=== PATIENT | female | born 1960 | race Caucasian/White ===

== ENCOUNTER → 2017-04-15 | Outpatient (CLI) | payer OTHER | END | disposition home or self-care (01) | LOC: CFH 08:06 → EDSTATUS 08:15 | PROVIDERS: ATTEND Genetic Counselor, MS | DX: Z12.31 Encounter for screening mammogram for malignant neoplasm of breast (principal) | CPT/HCPCS: 77063; G0202 ==

== ENCOUNTER → 2017-08-22 | Outpatient (CLI) | payer OTHER ==
[2017-08-22 08:02] LABS: ALBUMIN 3.7 g/dL (3.4-5.0); ANION GAP 8 mmol/L (5-15); CALCIUM 8.9 mg/dL (8.5-10.1); CHLORIDE 105 mmol/L (98-107)
[2017-08-22 08:10] LABS: ALANINE AMINOTRANSFERASE 27 U/L (12-78); ALKALINE PHOSPHATASE 132 U/L (45-117); CHOL/HDL RATIO 4.3; CHOLESTEROL, TOTAL 189 mg/dL (140-239); CREATININE 0.73 mg/dL (0.55-1.02); FREE T4 (FREE THYROXINE) 1.11 ng/dL (0.76-1.46); HDL CHOL % 23 % (28-40); HDL CHOLESTEROL (DIRECT) 44 mg/dL (40-60); LDL CHOLESTEROL,CALCULATED 120 mg/dL (54-169); LDL/HDL RATIO 2.7 (0.5-3.0); TOTAL PROTEIN 7.8 g/dL (6.4-8.2); TRIGLYCERIDES 124 mg/dL (50-200); VLDL CHOLESTEROL 25 mg/dL (0-25)
[2017-08-22 08:36] LABS: HEMOGLOBIN A1C 6.8 % (4.2-6.3)
[2017-08-22 09:00] LABS: BASOPHILS # (AUTO) 0.07 x10^3/uL (0-0.1); BASOPHILS % (AUTO) 1 % (0-1); EOSINOPHILS # (AUTO) 0.57 x10^3/uL (0-0.4); EOSINOPHILS % (AUTO) 5 % (1-7); LYMPHOCYTES # (AUTO) 2.83 x10^3/uL (1-3.4); LYMPHOCYTES % (AUTO) 25 % (22-44); MD NO; MEAN CORPUSCULAR HEMOGLOBIN 30.1 pg (27.0-34.8); MEAN CORPUSCULAR HGB CONC 33.7 g/dL (32.4-35.8); MEAN CORPUSCULAR VOLUME 89.3 fL (80-100); MEAN PLATELET VOLUME 8.3 fL (7.4-10.4); MONOCYTES # (AUTO) 0.69 x10^3/uL (0.2-0.8); MONOCYTES % (AUTO) 6 % (2-9); NEUTROPHILS # (AUTO) 7.36 x10^3/uL (1.8-6.8); NEUTROPHILS % (AUTO) 64 % (42-75); PLATELET COUNT 363 x10^3/uL (130-400); RED BLOOD COUNT 5.11 x10^6/uL (3.82-5.3); RED CELL DISTRIBUTION WIDTH 14.2 % (9.6-15.2)
== END ==
LOC: LAB 07:35
PROVIDERS: ATTEND Genetic Counselor, MS
DX: E11.9 Type 2 diabetes mellitus without complications (principal)
CPT/HCPCS: 36415; 80053; 80061; 82043; 82306; 82570; 83036; 84439; 84443; 85025

== ENCOUNTER → 2017-12-24 | Outpatient (CLI) | payer OTHER | END | disposition home or self-care (01) | LOC: CVU 07:40 | PROVIDERS: ATTEND Internal Medicine Cardiovascular Disease | DX: I08.3 Combined rheumatic disorders of mitral, aortic and tricuspid valves (principal); I48.2 Chronic atrial fibrillation; I50.9 Heart failure, unspecified | CPT/HCPCS: 93306 ==

== ENCOUNTER 2018-07-09 10:48 | Emergency (ER) | payer OTHER ==
[~2018-07-09] VITALS: Ht 154.9 cm; Wt 113.0 kg
[2018-07-09 11:23] VITALS: BP 147/84
[2018-07-09] MEDS ORDERED: HYDROcodone/APAP 5/325 TABLET ONE (11:41)
[2018-07-09] MEDS ORDERED: HYDROcodone/APAP 5/325 TABLET PO ONE (12:00)
== END 2018-07-09 13:17 | disposition home or self-care (01) ==
LOC: ED 13:11
DX: S80.02XA Contusion of left knee, initial encounter (principal); S80.01XA Contusion of right knee, initial encounter; E11.9 Type 2 diabetes mellitus without complications; J45.909 Unspecified asthma, uncomplicated; I50.9 Heart failure, unspecified; I48.91 Unspecified atrial fibrillation; W01.0XXA Fall on same level from slipping, tripping and stumbling without subsequent striking against object, initial encounter; Y93.89 Activity, other specified; Y92.89 Other specified places as the place of occurrence of the external cause; Y99.8 Other external cause status
CPT/HCPCS: 99283

== ENCOUNTER 2018-12-24 13:19 | Inpatient (IN) | payer OTHER ==
[~2018-12-24] VITALS: Ht 154.9 cm; Wt 114.9 kg
[2018-12-24 14:27] VITALS: BP 166/79
[2018-12-24] MEDS ORDERED: theophylline PO (15:12)
[2018-12-24] MEDS ORDERED: MONT10TA6 PO (15:12)
[2018-12-24] MEDS ORDERED: RIVA20TA PO (15:12)
[2018-12-24] MEDS ORDERED: ALBU8.5H8 INH (15:12)
[2018-12-24] MEDS ORDERED: FURO40TA6 PO (15:12)
[2018-12-24] MEDS ORDERED: POTA20TA14 PO (15:12)
[2018-12-24] MEDS ORDERED: VERA240T10 PO (15:12)
[2018-12-24] MEDS ORDERED: BUDE10.2 INH (15:12)
[2018-12-24] MEDS ORDERED: DIGO125T PO (15:12)
[2018-12-24 15:14] LABS: ANION GAP 6 mmol/L (5-15); CALCIUM 9.5 mg/dL (8.5-10.1); CHLORIDE 105 mmol/L (98-107); CREATININE 0.72 mg/dL (0.55-1.02)
[2018-12-24 15:25] LABS: CHOL/HDL RATIO 5.7; CHOLESTEROL, TOTAL 215 mg/dL (140-239); FREE T4 (FREE THYROXINE) 1.15 ng/dL (0.76-1.46); HDL CHOL % 18 % (28-40); HDL CHOLESTEROL (DIRECT) 38 mg/dL (40-60); LDL CHOLESTEROL,CALCULATED 138 mg/dL (54-169); LDL/HDL RATIO 3.6 (0.5-3.0); TRIGLYCERIDES 197 mg/dL (50-200); VLDL CHOLESTEROL 39 mg/dL (0-25)
[2018-12-24] MEDS ORDERED: DIGOXIN 0.125 MG TABLET PO SCH (17:00)
[2018-12-24] MEDS ORDERED: VERA240C4 PO (17:17)
[2018-12-24] MEDS ORDERED: THEO300T9 PO (17:17)
[2018-12-24] MEDS ORDERED: BISACODYL 10 MG SUPP PR PRN (17:30)
[2018-12-24] MEDS ORDERED: BISACODYL 5 MG EC TABLET PO PRN (17:30)
[2018-12-24] MEDS ORDERED: ACETAMINOPHEN 325 MG TABLET PO PRN (17:30)
[2018-12-24] MEDS ORDERED: ONDANSETRON 2MG/ML, 2ML IV PRN (18:00)
[2018-12-24] MEDS ORDERED: ALBUTEROL SULFATE 2.5 MG/3 ML HHN SCH (18:00)
[2018-12-24] MEDS ORDERED: VERAPAMIL ER 240MG TABLET.ER PO SCH (18:00)
[2018-12-24 18:18] VITALS: BP 121/86
[2018-12-24] MEDS: RIVAROXABAN 20 MG TABLET PO SCH (18:20)
[2018-12-24] MEDS ORDERED: BUDESONIDE 0.5 MG/2 ML INHA HHN SCH (19:00)
[2018-12-24 19:25] VITALS: BP 141/88
[2018-12-24] MEDS ORDERED: ZOLPIDEM 5MG TABLET PO PRN (21:00)
[2018-12-24] MEDS: BUDESONIDE 0.5 MG/2 ML INHA HHN SCH (21:00)
[2018-12-24] MEDS: ALBUTEROL SULFATE 2.5 MG/3 ML HHN SCH (21:00)
[2018-12-24] MEDS: MONTELUKAST 10 MG TABLET PO SCH (21:23)
[2018-12-24] MEDS: SOTALOL 80MG TABLET PO SCH (21:23)
[2018-12-24] MEDS: THEOPHYLLINE 100 MG CAP.ER.24H PO SCH (21:23)
[2018-12-24] MEDS: SODIUM CHLORIDE FLUSH 10ML SYR IVF SCH (21:23)
[2018-12-25 00:51] VITALS: BP 137/58
[2018-12-25] MEDS: ALBUTEROL SULFATE 2.5 MG/3 ML HHN SCH ×4 (03:00→20:14)
[2018-12-25] MEDS: BUDESONIDE 0.5 MG/2 ML INHA HHN SCH ×2 (09:00→20:14)
[2018-12-25 09:48] VITALS: BP 128/61
[2018-12-25] MEDS: THEOPHYLLINE 100 MG CAP.ER.24H PO SCH ×2 (10:10→21:32)
[2018-12-25] MEDS: SODIUM CHLORIDE FLUSH 10ML SYR IVF SCH ×2 (10:10→21:31)
[2018-12-25] MEDS: SOTALOL 80MG TABLET PO SCH ×2 (10:16→21:32)
[2018-12-25] MEDS: VERAPAMIL ER 240MG TABLET.ER PO SCH (10:16)
[2018-12-25 14:25] VITALS: BP 136/85
[2018-12-25] MEDS: RIVAROXABAN 20 MG TABLET PO SCH (17:06)
[2018-12-25 20:13] VITALS: BP 133/76
[2018-12-25] MEDS: MONTELUKAST 10 MG TABLET PO SCH (21:32)
[2018-12-26] MEDS: ALBUTEROL SULFATE 2.5 MG/3 ML HHN SCH ×4 (02:44→21:16)
[2018-12-26 05:01] VITALS: BP 133/88
[2018-12-26 06:53] VITALS: BP 143/83
[2018-12-26] MEDS: BUDESONIDE 0.5 MG/2 ML INHA HHN SCH ×2 (06:59→21:16)
[2018-12-26] MEDS: THEOPHYLLINE 100 MG CAP.ER.24H PO SCH ×2 (09:01→20:53)
[2018-12-26] MEDS: SOTALOL 80MG TABLET PO SCH ×2 (09:01→20:52)
[2018-12-26] MEDS: SODIUM CHLORIDE FLUSH 10ML SYR IVF SCH ×2 (09:01→20:53)
[2018-12-26] MEDS: VERAPAMIL ER 240MG TABLET.ER PO SCH (09:01)
[2018-12-26 14:03] VITALS: BP 135/92
[2018-12-26] MEDS ORDERED: PROPOFOL 10 MG/ML, 20ML ONE (14:54)
[2018-12-26] MEDS: RIVAROXABAN 20 MG TABLET PO SCH (16:57)
[2018-12-26 18:45] VITALS: BP 144/74
[2018-12-26] MEDS: MONTELUKAST 10 MG TABLET PO SCH (20:52)
[2018-12-27] MEDS: ALBUTEROL SULFATE 2.5 MG/3 ML HHN SCH ×2 (02:53→06:15)
[2018-12-27 03:05] VITALS: BP 113/71
[2018-12-27] MEDS: BUDESONIDE 0.5 MG/2 ML INHA HHN SCH (06:15)
[2018-12-27 07:49] VITALS: BP 122/66
[2018-12-27] MEDS: VERAPAMIL ER 240MG TABLET.ER PO SCH (08:55)
[2018-12-27] MEDS: THEOPHYLLINE 100 MG CAP.ER.24H PO SCH (08:55)
[2018-12-27] MEDS: SODIUM CHLORIDE FLUSH 10ML SYR IVF SCH (08:56)
[2018-12-27] MEDS: SOTALOL 80MG TABLET PO SCH (08:56)
[2018-12-27] MEDS ORDERED: SOTA80TA18 PO (10:05)
== END 2018-12-27 11:16 | disposition home or self-care (01) | DRG 309 ==
LOC: 5SO 13:19
PROVIDERS: ADMIT Internal Medicine Cardiovascular Disease; ATTEND Internal Medicine Cardiovascular Disease
PROC: 5A2204Z Restoration of Cardiac Rhythm, Single (ICD-10-PCS; principal; 2018-12-26 14:50)
DX: I48.0 Paroxysmal atrial fibrillation (principal); D68.69 Other thrombophilia; Z68.42 Body mass index [BMI] 45.0-49.9, adult; E11.65 Type 2 diabetes mellitus with hyperglycemia; E66.9 Obesity, unspecified; E78.5 Hyperlipidemia, unspecified; G47.30 Sleep apnea, unspecified; I10 Essential (primary) hypertension; I42.9 Cardiomyopathy, unspecified; Z87.891 Personal history of nicotine dependence
CPT/HCPCS: 36415; 92960; J7613; J7626; 71046; 80048; 80061; 84439; 84443; 85014; 85018; 93005; 93306; 94640; G0378; J2704